=== PATIENT | female | born 1980 | race Two or more races ===

== ENCOUNTER 2019-02-12 20:14 | Emergency (ER) | payer MEDICAID ==
[~2019-02-12] VITALS: Ht 162.6 cm; Wt 76.5 kg
--- NOTE | 2019-02-12 20:59 | NUR ---
PT USED COCAINE TODAY. SHE HAS NOT USED IT BEFORE. PT HAS LEFT CHEST PRESSURE AND DOES NOT FEEL GOOD. PT THOUGHT SHE WAS GOING TO HAVE A HEART ATTACK. PT SINUS RHYTHM ON MONITOR, SKIN P/W/D.
[2019-02-12 21:15] LABS: BASOPHILS # (AUTO) 0.05 x10^3/uL (0-0.1); BASOPHILS % (AUTO) 0 % (0-1); EOSINOPHILS # (AUTO) 0.25 x10^3/uL (0-0.4); EOSINOPHILS % (AUTO) 2 % (1-7); LYMPHOCYTES # (AUTO) 1.66 x10^3/uL (1-3.4); LYMPHOCYTES % (AUTO) 12 % (22-44); MD NO; MEAN CORPUSCULAR HGB CONC 34.8 g/dL (32.4-35.8); MEAN CORPUSCULAR VOLUME 88.9 fL (80-100); MEAN PLATELET VOLUME 7.6 fL (7.4-10.4); MONOCYTES # (AUTO) 0.89 x10^3/uL (0.2-0.8); MONOCYTES % (AUTO) 6 % (2-9); NEUTROPHILS # (AUTO) 11.03 x10^3/uL (1.8-6.8); NEUTROPHILS % (AUTO) 80 % (42-75); PLATELET COUNT 350 x10^3/uL (130-400); RED CELL DISTRIBUTION WIDTH 12.4 % (9.6-15.2)
[2019-02-12 21:28] LABS: ALBUMIN 4.6 g/dL (3.4-5.0); ANION GAP 10 mmol/L (5-15); CALCIUM 9.5 mg/dL (8.5-10.1); CHLORIDE 109 mmol/L (98-107); CREATININE 0.86 mg/dL (0.55-1.02)
--- NOTE | 2019-02-12 21:57 | NUR ---
RE-EVALUATION DONE.PATIENT DISCHARGED WITH INSTRUCTION. VERBALIZED UNDERSTANDING.
[2019-02-12 21:58] VITALS: BP 139/69
== END 2019-02-12 22:00 | disposition home or self-care (01) ==
LOC: ED 21:28
DX: R00.0 Tachycardia, unspecified (principal); F19.10 Other psychoactive substance abuse, uncomplicated; F14.10 Cocaine abuse, uncomplicated
CPT/HCPCS: 36415; 80048; 82040; 84703; 85025; 93005; 99284